=== PATIENT | female | born 2000 | race American Indian/Alaskan Native ===

== ENCOUNTER 2022-07-05 13:54 | Inpatient (IN) | payer MEDICAID ==
[2022-07-05] MEDS ORDERED: IPRATROPIUM/ALBUTEROL SULFATE 3 ML AMPUL.NEB IH ONE ×2 (14:21)
[2022-07-05] MEDS ORDERED: methylPREDNISolone Sod Succinate 40 MG/1 ML INJ IV ONE (14:22)
[2022-07-05] MEDS ORDERED: LEVALBUTEROL 0.63 MG/3 ML NEBU IH ONE (14:23)
--- NOTE | 2022-07-05 14:26 | Emergency Department Report ---
ED General Adult HPI - General Chief complaint: Adult Asthma Stated complaint: ASTHMA PUI?: No Time Seen by Provider: 07/05/22 14:19 Source: patient, EMS Mode of arrival: Stretcher Limitations: No Limitations - History of Present Illness Initial comments: 21 year old female brought in by EMS with concern of shortness of breath since yesterday. Patient states she has medical history of asthma and denies anything else. Denies smoking. Severity scale (0 -10): 0 - Related Data Previous Rx's Medication Instructions Recorded Last Taken Type Rivaroxaban [Xarelto] 15 mg PO Q12H 21 Days #42 tablet 07/05/22 Unknown Rx Allergies Allergy/AdvReac Type Severity Reaction Status Date / Time shellfish derived Allergy Anaphylaxis Verified 07/05/22 14:10 ED Review of Systems ROS: Stated complaint: ASTHMA Other details as noted in HPI Comment: All other systems reviewed and negative ED Past Medical Hx - Past Medical History Previous Medical History?: Yes - Medications Home Medications: Home Medications Medication Instructions Recorded Confirmed Last Taken Type Rivaroxaban [Xarelto] 15 mg PO Q12H 21 Days #42 tablet 07/05/22 Unknown Rx ED Physical Exam - General Limitations: No Limitations General appearance: alert, in no apparent distress - Head Head exam: Present: atraumatic, normocephalic, normal inspection - Eye Eye exam: Present: normal appearance Pupils: Present: normal accommodation - ENT ENT exam: Present: normal exam, normal orophraynx, mucous membranes moist - Neck Neck exam: Present: normal inspection, full ROM - Respiratory Respiratory exam: Present: wheezes. Absent: respiratory distress, rales, rho nchi, stridor, accessory muscle use - Cardiovascular Cardiovascular Exam: Present: tachycardia - GI/Abdominal GI/Abdominal exam: Present: soft - Extremities Exam Extremities exam: Present: normal inspection, full ROM, normal capillary refill - Back Exam Back exam: Present: normal inspection, full ROM - Neurological Exam Neurological exam: Present: alert, oriented X3, CN II-XII intact - Psychiatric Psychiatric exam: Present: normal affect, normal mood - Skin Skin exam: Present: normal color ED Course Vital Signs 07/05/22 07/05/22 07/05/22 13:54 14:44 15:07 Temperature 98.7 F 98.5 F Pulse Rate 134 H 142 H Pulse Rate [ Bilateral] Respiratory 24 20 Rate Respiratory Rate [Bilateral ] Blood Pressure 125/68 Blood Pressure 119/82 [Left] O2 Sat by Pulse 100 78 L 99 Oximetry 07/05/22 07/05/22 15:15 15:30 Temperature Pulse Rate 138 H Pulse Rate [ 146 H Bilateral] Respiratory 37 H Rate Respiratory 30 H Rate [Bilateral ] Blood Pressure 121/74 Blood Pressure [Left] O2 Sat by Pulse 100 Oximetry - Reevaluation(s) Reevaluation #1: 07/05/22 15:32 EKG AT 1452: SINUS TACHY AT 144GPM; NO ST ELEVATION OR DEPRESSION; NO WELLEN WAVES. DDIMER BACK AND HIGH; WILL ORDER CTPA 07/05/22 16:15 WASTE DUSTER BROUGHT TO MY ATTENTION PATIENT HAS ANAPHYLAXIS TO SHELLFISH; SPOKE TO DR. CONWAY WHO KINDLY ADVISED ME THAT WE CAN DO NM VQ SCAN IN ER. WILL ORDER. IN THE MEANTIME, I WILL ORDER SQ LOVENOX IN CAUSE PATIENT DOES HAVE PE. ED Medical Decision Making - Lab Data Result diagrams: 07/05/22 14:40 07/05/22 14:40 - Medical Decision Making EKG WITH NO RIGHT HEART STRAIN; NO S1Q3T3 AND BNP NORMAL; THEREFORE DOUBT MASSIVE/SUBMASSIVE PE. NM VQ SCAN WITHNTERMEDIATE PROBABILITY FOR PULMONARY EMBOLISM. LARGE LEFT LOWER LOBE AND MODERATE LEFT UPPER LOBE PERFUSION DEFECTS WITHOUT CORRESPONDING RADIOGRAPHIC ABNORMALITIES. VENTILATION IMAGING WAS NOT PERFORMED. PATIENT INFORMED I WILL START HER ON XARELTO 15MG BID FOR 21 DAYS AND IN THE MEANTIME, SHE MUST FOLLOW UP WITH PRIMARY CARE PROVIDER OF HER CHOICE TO BE SEEN WITHIN 3 DAYS TO SEE HOW LONG SHE NEEDS TO BE ON THE MEDICATION. PATIENT INFORMED THE BLEEDING RISK WHILE ON XARELTO. Critical care attestation.: If time is entered above; I have spent that time in minutes in the direct care of this critically ill patient, excluding procedure time. ED Disposition Clinical Impression: Sinus tachycardia by electrocardiogram, Elevated d-dimer, Wheezing Disposition: HOME / SELF CARE / HOMELESS Is pt being admited?: No Does the pt Need Aspirin: No Condition: Stable Instructions: Shortness of Breath, Adult Additional Instructions: MAKE A FOLLOW UP APPOINTMENT WITH YOUR PRIMARY CARE PROVIDER TO BE SEEN WITHIN 5 DAYS FOR FURTHER OUTPATIENT EVALUATION AND THE DURATION OF YOUR XARELTO. YOUR DDIMER WAS ELEVATED AND NUCLEAR MEDICINE VENTILATION PERFUSION SCAN REVEALS: IMPRESSION: INTERMEDIATE PROBABILITY FOR PULMONARY EMBOLISMS. LARGE LEFT LOWER LOBE AND MODERATE LEFT UPPER LOBE PERFUSION DEFECTS WITHOUT CORRESPONDING RADIOGRAPHIC ABNORMALITIES. VENTILATION IMAGING WAS NOT PERFORMED. TOMMY CALHOUN MD Prescriptions: Rivaroxaban [Xarelto] 15 mg PO Q12H 21 Days #42 tablet Forms: Work/School Release Form(ED) Time of Disposition: 18:10
--- NOTE | 2022-07-05 14:57 | XRay Report ---
CHEST 1 VIEW 07/05/2022 1:50 PM INDICATION / CLINICAL INFORMATION: sob. COMPARISON: None available. FINDINGS: SUPPORT DEVICES: None. HEART / MEDIASTINUM: No significant abnormality. LUNGS / PLEURA: No significant pulmonary or pleural abnormality. No pneumothorax. ADDITIONAL FINDINGS: Scoliotic curvature of the facet spine. IMPRESSION: 1. No acute findings. Signer Name: Adolfo Medellin DO Signed: 07/05/2022 2:53 PM Workstation Name: [email or web address]
[2022-07-05 15:36] LABS: BUN/Creatinine Ratio 11; Blood Urea Nitrogen 8 mg/dL (7-17); Calcium 9.8 mg/dL (8.4-10.2); Hemolysis Index 39
[2022-07-05] MEDS ORDERED: ENOXAPARIN 100 MG/1 ML INJ SUB-Q ONE (16:14)
[2022-07-05 16:33] LABS: Hematocrit 46.5 % (30.3-42.9); Hemoglobin 15.3 gm/dl (10.1-14.3); Mean Corpuscular HGB Conc 33 % (30-34); Mean Corpuscular Volume 87 fl (79-97); Platelet Count 233 K/mm3 (140-440); Red Blood Count 5.38 M/mm3 (3.65-5.03); Red Cell Distribution Width 15.3 % (13.2-15.2)
--- NOTE | 2022-07-05 17:51 | Nuclear Medicine Report ---
NUCLEAR MEDICINE PERFUSION LUNG SCAN INDICATION / CLINICAL INFORMATION: SOB / SINUS TACHY / DDIMER HIGH / SHELLFISH ALLERG. TECHNIQUE: 4.5 mCi of Tc-99m MAA were given by IV. COMPARISON: Chest radiograph dated today. FINDINGS: PERFUSION: There is a large left lower lobe perfusion defect without corresponding radiographic abnor mality. Moderate left upper lobe perfusion defect without corresponding radiographic abnormality. Denny rly normal perfusion within the left midlung. Normal perfusion throughout the right lung. ADDITIONAL FINDINGS: None. IMPRESSION: 1. Intermediate probability for pulmonary embolism. Large left lower lobe and moderate left upper lob e perfusion defects without corresponding radiographic abnormalities. Ventilation imaging was not per formed. Signer Name: Tawanda Del Toro MD Signed: 07/05/2022 5:46 PM Workstation Name: [id number]
--- NOTE | 2022-07-05 19:53 | History and Physical Report ---
History of Present Illness Date of examination: 07/05/22 Date of admission: 07/05/2022 Chief complaint: Shortness of breath and wheezing since yesterday. History of present illness: 21 year old female comes in for increasing shortness of breath since yesterday. Severe wheezing. Not responding to inhalers. No fever or chills. Not responding to outpatient treatment. In the emergency room oxygen saturations were in the mid 80s on room air. Responding to nasal cannula oxygen. - Past Medical History --Asthma - past surgical history --unavailable -social history smokes marijuana to 1 joint twice a day -family history --nothing significant Review of Systems ROS: Constitutional no weight loss or weight gain no fever or chills HEENT no sore throat no post nasal drip no diplopia Neck no neck stiffness no lymph gland enlargement Chest and lungs shortness of breath and wheezing for 2 days CVS no chest pain no diaphoresis no palpitations GI no nausea no vomiting no diarrhea Genitourinary system no dysuria no flank pain Musculoskeletal system no muscle pains no joint pains 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 Skin no rash no itching Psychiatric no depression no homicidal or suicidal tendencies Hematologic no lymphedema or bruising Endocrine no polydipsia no polyuria no cold intolerance no heat intolerance Medications and Allergies Allergies Allergy/AdvReac Type Severity Reaction Status Date / Time shellfish derived Allergy Anaphylaxis Verified 07/05/22 14:10 Home Medications Medication Instructions Recorded Confirmed Last Taken Type Rivaroxaban [Xarelto] 15 mg PO Q12H 21 Days #42 tablet 07/05/22 Unknown Rx Exam - Constitutional Vitals: Temp Pulse Resp BP Pulse Ox 98.5 F 145 H 30 H 102/58 95 07/05/22 15:07 07/05/22 18:30 07/05/22 18:30 07/05/22 18:30 07/05/22 18:40 General appearance: Present: no acute distress, well-nourished - EENT Eyes: Present: PERRL ENT: hearing intact, clear oral mucosa - Neck Neck: Present: supple, normal ROM - Respiratory Respiratory effort: normal Respiratory: bilateral: CTA, rhonchi, wheezing - Cardiovascular Heart rate: 98 Rhythm: regular Heart Sounds: Present: S1 & S2. Absent: rub, click - Extremities Extremities: pulses symmetrical, No edema Peripheral Pulses: within normal limits - Abdominal General gastrointestinal: Present: soft, non-tender, non-distended, normal bowel sounds Female genitourinary: Present: normal - Rectal Rectal Exam: deferred - Integumentary Integumentary: Present: clear, warm, dry - Musculoskeletal Musculoskeletal: gait normal, strength equal bilaterally - Psychiatric Psychiatric: appropriate mood/affect, intact judgment & insight - Neurologic Neurologic: CNII-XII intact, moves all extremities Results - Labs CBC & Chem 7: 07/05/22 14:40 07/05/22 14:40 Labs: Laboratory Last Values WBC 8.2 K/mm3 (4.5-11.0) 07/05/22 14:40 RBC 5.38 M/mm3 (3.65-5.03) H 07/05/22 14:40 Hgb 15.3 gm/dl (10.1-14.3) H 07/05/22 14:40 Hct 46.5 % (30.3-42.9) H 07/05/22 14:40 MCV 87 fl (79-97) 07/05/22 14:40 MCH 28 pg (28-32) 07/05/22 14:40 MCHC 33 % (30-34) 07/05/22 14:40 RDW 15.3 % (13.2-15.2) H 07/05/22 14:40 Plt Count 233 K/mm3 (140-440) 07/05/22 14:40 D-Dimer 488.74 ng/mlDDU (0-234) H 07/05/22 14:40 Sodium 136 mmol/L (137-145) L 07/05/22 14:40 Potassium 4.1 mmol/L (3.6-5.0) 07/05/22 14:40 Chloride 101.4 mmol/L (98-107) 07/05/22 14:40 Carbon Dioxide 19 mmol/L (22-30) L 07/05/22 14:40 Anion Gap 20 mmol/L 07/05/22 14:40 BUN 8 mg/dL (7-17) 07/05/22 14:40 Creatinine 0.7 mg/dL (0.6-1.2) 07/05/22 14:40 Estimated GFR > 60 ml/min 07/05/22 14:40 BUN/Creatinine Ratio 11 % 07/05/22 14:40 Glucose 100 mg/dL (65-100) 07/05/22 14:40 Calcium 9.8 mg/dL (8.4-10.2) 07/05/22 14:40 Magnesium 1.80 mg/dL (1.7-2.3) 07/05/22 14:40 NT-Pro-B Natriuret Pep 63.52 pg/mL (0-450) 07/05/22 16:11 Short CBC 07/05/22 Range/Units 14:40 WBC 8.2 (4.5-11.0) K/mm3 Hgb 15.3 H (10.1-14.3) gm/dl Hct 46.5 H (30.3-42.9) % Plt Count 233 (140-440) K/mm3 BMP 07/05/22 14:40 Sodium 136 L Potassium 4.1 Chloride 101.4 Carbon Dioxide 19 L BUN 8 Creatinine 0.7 Glucose 100 Calcium 9.8 - Imaging and Cardiology Chest x-ray: report reviewed Imaging and Cardiology: Chest x-ray No acute findings Pulmonary perfusion lung scan Intermediate probability for pulmonary embolism. Large left lower lobe and moderate left upper lobe perfusion defects without corresponding radiographic abnormalities ventilation imaging was not performed all of normal emergency room but thank you by Assessment and Plan Advance Directives: Yes (Full code) VTE prophylaxis?: Chemical Plan of care discussed with patient/family: Yes - Patient Problems (1) Acute respiratory failure with hypoxia Status: Acute Plan to address problem: Continue oxygen supplementation Sats are between 85 and 88 on room air Patient is wheezing (2) Asthma exacerbation Status: Acute Qualifiers: Asthma severity: severe Asthma persistence: persistent Qualified Code(s): J45.51 - Severe persistent asthma with (acute) exacerbation Plan to address problem: Patient on nebulizers [id number] and every 3 as needed, IV steroids and IV antibiotics (3) Pulmonary embolism Status: Acute Qualifiers: Pulmonary embolism type: unspecified Acute cor pulmonale presence: without acute cor pulmonale Plan to address problem: Eliquis 5 mg twice a day (4) Polycythemia due to fall in plasma volume Status: Acute Plan to address problem: IV fluids for now (5) DVT prophylaxis Status: Acute Plan to address problem: On anticoagulation and GI prophylaxis (6) Advance care planning Status: Acute Plan to address problem: Disease education conducted, care plan discussed, diagnosis discussed, prognosis discussed. Patient is full code. Patient acknowledged understanding and agreement with care plan. +30 minutes.
[2022-07-05] MEDS ORDERED: ONDANSETRON 4 MG/2 ML INJ IV PRN (20:08)
[2022-07-05] MEDS ORDERED: ACETAMINOPHEN 325 MG TAB PO PRN (20:08)
[2022-07-05] MEDS ORDERED: MORPHINE 2 MG/1 ML INJ IV PRN (20:09)
[2022-07-05] MEDS ORDERED: METOCLOPRAMIDE 10 MG/2 ML INJ IV PRN (20:09)
[2022-07-05] MEDS ORDERED: oxyCODONE /ACETAMINOPHEN 5-325MG TAB PO PRN (20:09)
[2022-07-05] MEDS ORDERED: IPRATROPIUM/ALBUTEROL SULFATE 3 ML AMPUL.NEB IH PRN (20:10)
[2022-07-05] MEDS ORDERED: SODIUM CHLORIDE 0.9% 1000 ML 1,000 ML IV SCH (20:15)
[2022-07-05] MEDS ORDERED: ALBUTEROL 2.5 MG/3 ML NEBU IH PRN (20:20)
[2022-07-05] MEDS ORDERED: LORazepam 2 MG/ML VIAL IV PRN (20:55)
[2022-07-05] MEDS: HEPARIN 5,000 UNIT/1 ML VIAL SUB-Q SCH (21:49)
[2022-07-05] MEDS: methylPREDNISolone Sod Succinate 125 MG/2 ML INJ IV SCH (21:49)
[2022-07-05] MEDS ORDERED: ALBUTEROL 2.5 MG/3 ML NEBU IH ONE (21:56)
[2022-07-05] MEDS ORDERED: IPRATROPIUM 0.02% NEBU 2.5 ML IH ONE (21:56)
[2022-07-05] MEDS: FAMOTIDINE 20 MG TAB PO SCH (22:13)
[2022-07-05 22:39] LABS: HCG Qualitative,Urine Negative (Negative)
[2022-07-06 05:37] LABS: Basophils % (Auto) 0.5 % (0.0-1.8); Hematocrit 41.7 % (30.3-42.9); Hemoglobin 13.3 gm/dl (10.1-14.3); Lymphocytes # (Auto) 0.4 K/mm3 (1.2-5.4); Lymphocytes % (Auto) 4.6 % (13.4-35.0); Mean Corpuscular HGB Conc 32 % (30-34); Mean Corpuscular Volume 86 fl (79-97); Monocytes # (Auto) 0.7 K/mm3 (0.0-0.8); Monocytes % (Auto) 8.8 % (0.0-7.3); Platelet Count 221 K/mm3 (140-440); Red Blood Count 4.82 M/mm3 (3.65-5.03); Red Cell Distribution Width 15.4 % (13.2-15.2)
[2022-07-06 05:57] LABS: Alanine Aminotransferase 8 units/L (7-56); Albumin 4.6 g/dL (3.9-5)
[2022-07-06 06:18] LABS: Blood Urea Nitrogen 9 mg/dL (7-17); Calcium 9.3 mg/dL (8.4-10.2); Hemolysis Index 15
[2022-07-06] MEDS: methylPREDNISolone Sod Succinate 125 MG/2 ML INJ IV SCH ×3 (06:25→22:09)
[2022-07-06] MEDS: guaiFENesin 100 MG/5 ML ORAL LIQD PO PRN ×3 (06:26→22:48)
[2022-07-06 06:34] LABS: BUN/Creatinine Ratio 15
[2022-07-06] MEDS: IPRATROPIUM/ALBUTEROL SULFATE 3 ML AMPUL.NEB IH SCH ×4 (08:24→21:54)
--- NOTE | 2022-07-06 09:15 | Electrocardiograph Report ---
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
--- NOTE | 2022-07-06 10:11 | Progress Note ---
Assessment and Plan Assessment and plan: History of present illness: 21 year old female comes in for increasing shortness of breath since yesterday. Severe wheezing. Not responding to inhalers. No fever or chills. Not responding to outpatient treatment. In the emergency room oxygen saturations were in the mid 80s on room air. Responding to nasal cannula oxygen. Hospital Course: 07/06: On salter nasal cannula 12 l/min. Continue inhaler therapy, steroids, abx. Consultation placed to pulmonology. Eliquis d/c, start heparin gtt for PE. Coronavirus pcr sent. Assessment and Plan: #Acute hypoxic respiratory failure - currently on Hi Georgi nasal cannula 12/50% - etiology:multifactorial PE/asthma - medical therapy outlined below -will follow pulmonary input #Asthma exacerbation - wheezes/shortness of breath on presentation - initiated on duonebs, budesonide, brovana inhalers - solumedrol IV - levaquin - pulmonary consulation #COVID PUI - coronavirus PCR sent #Pulmonary embolism - VQ demonstrates int probability of PE. large left lower lobe filling defect - D/c eliquis, start heparin gtt #Preventative health care - preventative health counseling regarding management of life stressors, medication compliance and overall effect of chronic medical conditions on overall health. Encourage patient to follow up closely with with OP providers +30 minutes. The high probability of a clinically significant, sudden or life threatening deterioration of the [respiratory, heme] system(s) required my full and direct attention, intervention and personal management. The aggregate critical care time was [60] minutes. This time is in addition to time spent performing reported procedures but includes the following: [x] Data Review and interpretation [x] Patient assessment and monitoring of vital signs [x] Documentation [x] Medication orders and management History Interval history: I saw and evaluated the patient at bedside. He stated that she was comfortable this had improved. Did not appear to be in any distress. Family member present at bedside. The questions of both the patient and her family member were answered to their satisfaction. Hospitalist Physical - Physical exam Narrative exam: Physical Exam: VITAL SIGNS: Reviewed. GENERAL: The patient appears normally developed, Vital signs as documented. on hiflow nasal cannula HEAD: No signs of head trauma. EYES: Pupils are equal. Extraocular motions intact. EARS: Hearing grossly intact. MOUTH: Oropharynx is normal. NECK: No adenopathy, no JVD. CHEST: poor airmovement. improvement of wheezes. CARDIAC: Regular rate and rhythm. S1 and S2, without murmurs, gallops, or rubs. VASCULAR: No Edema. Peripheral pulses normal and equal in all extremities. ABDOMEN: Soft, non tender and non distended. No rebound or guarding, and no masses palpated. Bowel Sounds normal. MUSCULOSKELETAL: Good range of motion of all major joints. Extremities without clubbing, cyanosis or edema. NEUROLOGIC EXAM: Alert and oriented x 4. no focal sensory or strength deficits. PSYCHIATRIC: Mood normal. SKIN: detail exam as documented in skin assessment - Constitutional Vitals: Temp Pulse Resp BP Pulse Ox 98.6 F 118 H 16 118/61 100 07/06/22 07:52 07/06/22 08:24 07/06/22 08:24 07/06/22 07:52 07/06/22 08:24 General appearance: Present: no acute distress, well-nourished Results - Labs CBC & Chem 7: 07/06/22 11:15 07/06/22 05:22 Labs: Laboratory Last Values WBC 8.4 K/mm3 (4.5-11.0) 07/06/22 05:22 RBC 4.82 M/mm3 (3.65-5.03) 07/06/22 05:22 Hgb 13.3 gm/dl (10.1-14.3) 07/06/22 05:22 Hct 41.7 % (30.3-42.9) 07/06/22 05:22 MCV 86 fl (79-97) 07/06/22 05:22 MCH 28 pg (28-32) 07/06/22 05:22 MCHC 32 % (30-34) 07/06/22 05:22 RDW 15.4 % (13.2-15.2) H 07/06/22 05:22 Plt Count 221 K/mm3 (140-440) 07/06/22 05:22 Lymph % (Auto) 4.6 % (13.4-35.0) L 07/06/22 05:22 [place] % (Auto) 8.8 % (0.0-7.3) H 07/06/22 05:22 Eos % (Auto) 0.0 % (0.0-4.3) 07/06/22 05:22 Baso % (Auto) 0.5 % (0.0-1.8) 07/06/22 05:22 Lymph # (Auto) 0.4 K/mm3 (1.2-5.4) L 07/06/22 05:22 [place] # (Auto) 0.7 K/mm3 (0.0-0.8) 07/06/22 05:22 Eos # (Auto) 0.0 K/mm3 (0.0-0.4) 07/06/22 05:22 Baso # (Auto) 0.0 K/mm3 (0.0-0.1) 07/06/22 05:22 Seg Neutrophils % 86.1 % (40.0-70.0) H 07/06/22 05:22 Seg Neutrophils # 7.2 K/mm3 (1.8-7.7) 07/06/22 05:22 D-Dimer 488.74 ng/mlDDU (0-234) H 07/05/22 14:40 Sodium 137 mmol/L (137-145) 07/06/22 05:22 Potassium 4.6 mmol/L (3.6-5.0) 07/06/22 05:22 Chloride 105.5 mmol/L (98-107) 07/06/22 05:22 Carbon Dioxide 19 mmol/L (22-30) L 07/06/22 05:22 Anion Gap 17 mmol/L 07/06/22 05:22 BUN 9 mg/dL (7-17) 07/06/22 05:22 Creatinine 0.6 mg/dL (0.6-1.2) 07/06/22 05:22 Estimated GFR > 60 ml/min 07/06/22 05:22 BUN/Creatinine Ratio 15 % 07/06/22 05:22 Glucose 106 mg/dL (65-100) H 07/06/22 05:22 Calcium 9.3 mg/dL (8.4-10.2) 07/06/22 05:22 Magnesium 1.80 mg/dL (1.7-2.3) 07/05/22 14:40 Total Bilirubin 0.60 mg/dL (0.1-1.2) 07/06/22 05:22 AST 23 units/L (5-40) 07/06/22 05:22 ALT 8 units/L (7-56) 07/06/22 05:22 Alkaline Phosphatase 53 units/L (35-129) 07/06/22 05:22 NT-Pro-B Natriuret Pep 63.52 pg/mL (0-450) 07/05/22 16:11 Total Protein 7.6 g/dL (6.3-8.2) 07/06/22 05:22 Albumin 4.6 g/dL (3.9-5) 07/06/22 05:22 Albumin/Globulin Ratio 1.5 % 07/06/22 05:22 Urine HCG, Qual Negative (Negative) 07/05/22 Unknown Active Medications - Current Medications Current Medications: Generic Name Dose Route Start Last Admin Trade Name Freq PRN Reason Stop Dose Admin Acetaminophen 650 mg 07/05/22 20:08 Acetaminophen 325 Mg Tab PO Q4H PRN Pain MILD(1-3)/Fever >100.5/PALOMARES Albuterol 2.5 mg 07/05/22 20:20 Albuterol 2.5 Mg/3 Ml Nebu IH Q3HRT PRN Wheezing Albuterol/Ipratropium 1 ampul 07/06/22 08:00 07/06/22 08:24 Ipratropium/Albuterol Sulfate 3 Ml Ampul.Neb IH 1 ampul QIDRT SHEYLA Administration Arformoterol Tartrate 15 mcg 07/06/22 20:00 Arformoterol 15 Mcg/2 Ml Nebu IH Q12HRT SHEYLA Budesonide 0.5 mg 07/06/22 10:00 Budesonide 0.5 Mg/2 Ml Nebu IH Q12HRT SHEYLA Famotidine 20 mg 07/05/22 22:00 07/05/22 22:13 Famotidine 20 Mg Tab PO Not Given BID SHEYLA Guaifenesin 200 mg 07/06/22 02:34 07/06/22 06:26 Guaifenesin 100 Mg/5 Ml Oral Liqd PO 200 mg Q4H PRN Administration Cough Heparin Sodium (Porcine) 5,000 unit 07/05/22 22:00 07/05/22 21:49 Heparin 5,000 Unit/1 Ml Vial SUB-Q 5,000 unit Q12HR SHEYLA Administration Levofloxacin/Dextrose 750 mg in 150 mls @ 100 mls/hr 07/05/22 21:00 07/05/22 21:31 Levaquin 750mg/150ml IV 100 mls/hr Q24H SHEYLA Administration Protocol Lorazepam 1 mg 07/05/22 20:55 07/05/22 21:25 Lorazepam 2 Mg/Ml Vial IV 1 mg Q4H PRN Administration Anxiety Methylprednisolone Sodium Succinate 60 mg 07/05/22 22:00 07/06/22 06:25 Methylprednisolone Sod Succinate 125 Mg/2 Ml Inj IV 60 mg Q8HR SHEYLA Administration Metoclopramide HCl 10 mg 07/05/22 20:09 Metoclopramide 10 Mg/2 Ml Inj IV Q6H PRN Nausea And Vomiting Morphine Sulfate 2 mg 07/05/22 20:09 Morphine 2 Mg/1 Ml Inj IV Q4H PRN Pain, Moderate (4-6) Ondansetron HCl 4 mg 07/05/22 20:08 Ondansetron 4 Mg/2 Ml Inj IV Q8H PRN Nausea And Vomiting Oxycodone/Acetaminophen 1 tab 07/05/22 20:09 Oxycodone /Acetaminophen 5-325mg Tab PO Q6H PRN Pain, Moderate (4-6) Sodium Chloride 10 ml 07/05/22 22:00 07/05/22 23:07 Sodium Chloride 0.9% 10 Ml Flush Syringe IV Not Given BID SHEYLA Sodium Chloride 10 ml 07/05/22 20:08 Sodium Chloride 0.9% 10 Ml Flush Syringe IV PRN PRN LINE FLUSH
[2022-07-06] MEDS: FAMOTIDINE 20 MG TAB PO SCH ×2 (10:13→22:09)
[2022-07-06] MEDS: HEPARIN 5,000 UNIT/1 ML VIAL SUB-Q SCH (10:15)
[2022-07-06] MEDS ORDERED: HEPARIN 10,000 UNITS/10 ML VIAL IV ONE (11:00)
[2022-07-06] MEDS ORDERED: HEPARIN/ 0.45% NACL DRIP 25,000 UNIT/500 ML BAG IV SCH (11:00)
[2022-07-06 11:28] LABS: Hematocrit 39.8 % (30.3-42.9); Hemoglobin 13.1 gm/dl (10.1-14.3)
[2022-07-06 11:43] LABS: INR 1.14 (0.87-1.13)
[2022-07-06 11:44] LABS: Partial Thromboplastin Time 31.6 Sec. (24.2-36.6)
[2022-07-06] MEDS: BUDESONIDE 0.5 MG/2 ML NEBU IH SCH ×2 (11:48→21:54)
[2022-07-06] MEDS ORDERED: HEPARIN 10,000 UNITS/10 ML VIAL IV PRN (16:00)
[2022-07-06] MEDS: ARFORMOTEROL 15 MCG/2 ML NEBU IH SCH (21:54)
[2022-07-07] MEDS: methylPREDNISolone Sod Succinate 125 MG/2 ML INJ IV SCH (05:15)
[2022-07-07] MEDS: BUDESONIDE 0.5 MG/2 ML NEBU IH SCH (07:59)
[2022-07-07] MEDS: ARFORMOTEROL 15 MCG/2 ML NEBU IH SCH (07:59)
[2022-07-07] MEDS: IPRATROPIUM/ALBUTEROL SULFATE 3 ML AMPUL.NEB IH SCH ×3 (07:59→16:17)
--- NOTE | 2022-07-07 08:25 | Consultation ---
History of Present Illness Consult date: 07/07/22 Medications and Allergies Allergies Allergy/AdvReac Type Severity Reaction Status Date / Time shellfish derived Allergy Anaphylaxis Verified 07/05/22 14:10 Home Medications Medication Instructions Recorded Confirmed Last Taken Type Rivaroxaban [Xarelto] 15 mg PO Q12H 21 Days #42 tablet 07/05/22 Unknown Rx Active Meds: Active Medications Acetaminophen (Acetaminophen 325 Mg Tab) 650 mg PO Q4H PRN PRN Reason: Pain MILD(1-3)/Fever >100.5/PALOMARES Albuterol (Albuterol 2.5 Mg/3 Ml Nebu) 2.5 mg IH Q3HRT PRN PRN Reason: Wheezing Albuterol/Ipratropium (Ipratropium/Albuterol Sulfate 3 Ml Ampul.Neb) 1 ampul IH QIDRT [facility] Last Admin: 07/07/22 07:59 Dose: 1 ampul Arformoterol Tartrate (Arformoterol 15 Mcg/2 Ml Nebu) 15 mcg IH Q12HRT [facility] Last Admin: 07/07/22 07:59 Dose: 15 mcg Budesonide (Budesonide 0.5 Mg/2 Ml Nebu) 0.5 mg IH Q12HRT [facility] Last Admin: 07/07/22 07:59 Dose: 0.5 mg Famotidine (Famotidine 20 Mg Tab) 20 mg PO BID [facility] Last Admin: 07/06/22 22:09 Dose: 20 mg Guaifenesin (Guaifenesin 100 Mg/5 Ml Oral Liqd) 200 mg PO Q4H PRN PRN Reason: Cough Last Admin: 07/06/22 22:48 Dose: 200 mg Heparin Sodium (Porcine) (Heparin 10,000 Units/10 Ml Vial) 1,800 unit 40 unit/kg (1800 unit) IV Q6H PRN PRN Reason: Anti-Xa Assay < 0.1 units/ml Levofloxacin/Dextrose (Levaquin 750mg/150ml) 750 mg in 150 mls @ 100 mls/hr IV Q24H [facility]; Protocol Last Admin: 07/06/22 22:08 Dose: 100 mls/hr Heparin Sodium/Sodium Chloride (Heparin/ 0.45% Nacl-25,000 Unit/500 Ml) 25,000 unit in 500 mls @ 14 mls/hr IV TITR [facility]; Protocol Last Titration: 07/06/22 23:54 Dose: 600 units/hr, 12 mls/hr Lorazepam (Lorazepam 2 Mg/Ml Vial) 1 mg IV Q4H PRN PRN Reason: Anxiety Last Admin: 07/05/22 21:25 Dose: 1 mg Methylprednisolone Sodium Succinate (Methylprednisolone Sod Succinate 125 Mg/2 Ml Inj) 60 mg IV Q8HR [facility] Last Admin: 07/07/22 05:15 Dose: 60 mg Metoclopramide HCl (Metoclopramide 10 Mg/2 Ml Inj) 10 mg IV Q6H PRN PRN Reason: Nausea And Vomiting Morphine Sulfate (Morphine 2 Mg/1 Ml Inj) 2 mg IV Q4H PRN PRN Reason: Pain, Moderate (4-6) Ondansetron HCl (Ondansetron 4 Mg/2 Ml Inj) 4 mg IV Q8H PRN PRN Reason: Nausea And Vomiting Oxycodone/Acetaminophen (Oxycodone /Acetaminophen 5-325mg Tab) 1 tab PO Q6H PRN PRN Reason: Pain, Moderate (4-6) Sodium Chloride (Sodium Chloride 0.9% 10 Ml Flush Syringe) 10 ml IV BID [facility] Last Admin: 07/06/22 22:09 Dose: 10 ml Sodium Chloride (Sodium Chloride 0.9% 10 Ml Flush Syringe) 10 ml IV PRN PRN PRN Reason: LINE FLUSH Physical Examination Vital signs: Vital Signs Temp Pulse Resp BP Pulse Ox 98.7 F 134 H 24 119/82 100 07/05/22 13:54 07/05/22 13:54 07/05/22 13:54 07/05/22 13:54 07/05/22 13:54 Results - Laboratory Findings CBC and BMP: 07/06/22 11:15 07/06/22 05:22 PT/INR, D-dimer PT 15.9 Sec. (12.2-14.9) H 07/06/22 11:15 INR 1.14 (0.87-1.13) H 07/06/22 11:15 D-Dimer 488.74 ng/mlDDU (0-234) H 07/05/22 14:40 Abnormal lab findings: Abnormal Labs 07/05/22 07/05/22 07/05/22 14:40 14:40 14:40 RBC 5.38 H Hgb 15.3 H Hct 46.5 H RDW 15.3 H Lymph % (Auto) [place] % (Auto) Lymph # (Auto) Seg Neutrophils % PT INR D-Dimer 488.74 H Heparin Anti-Xa Level Sodium 136 L Carbon Dioxide 19 L Glucose 07/06/22 07/06/22 07/06/22 05:22 05:22 11:15 RBC Hgb Hct RDW 15.4 H Lymph % (Auto) 4.6 L [place] % (Auto) 8.8 H Lymph # (Auto) 0.4 L Seg Neutrophils % 86.1 H PT 15.9 H INR 1.14 H D-Dimer Heparin Anti-Xa Level Sodium Carbon Dioxide 19 L Glucose 106 H 07/06/22 19:26 RBC Hgb Hct RDW Lymph % (Auto) [place] % (Auto) Lymph # (Auto) Seg Neutrophils % PT INR D-Dimer Heparin Anti-Xa Level 0.97 H Sodium Carbon Dioxide Glucose
--- NOTE | 2022-07-07 08:28 | Event Note ---
Date: 07/07/22 Full consult to follow. Patient much improved compared to admission now down to 1 liter NC. Reviewed V/q scan. COVID negative. Continue heparin for now, ordered echo to look for evidence of right heart strain and consider LE dopplers as well. 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 Agree with current asthma management
[2022-07-07] MEDS: FAMOTIDINE 20 MG TAB PO SCH (10:10)
--- NOTE | 2022-07-07 11:33 | Progress Note ---
Assessment and Plan Assessment and plan: History of present illness: 21 year old female comes in for increasing shortness of breath since yesterday. Severe wheezing. Not responding to inhalers. No fever or chills. Not responding to outpatient treatment. In the emergency room oxygen saturations were in the mid 80s on room air. Responding to nasal cannula oxygen. Hospital Course: 07/06: On salter nasal cannula 12 l/min. Continue inhaler therapy, steroids, abx. Consultation placed to pulmonology. Eliquis d/c, start heparin gtt for PE. Coronavirus pcr sent. 07/07: On room air. Breathing comfortably. Awaiting completion of ECHO to evaluate for Right heart strain. Plan for d/c home if normal. Assessment and Plan: #Acute hypoxic respiratory failure - currently on Hi Georgi nasal cannula 12/50% - etiology:multifactorial PE/asthma - coronavirus PCR negative - medical therapy outlined below -will follow pulmonary input #Asthma exacerbation - wheezes/shortness of breath on presentation - initiated on duonebs, budesonide, brovana inhalers - solumedrol IV - levaquin - pulmonary consulation #Pulmonary embolism - appears provoked, had taken a depot provera shot. current active smoking - VQ demonstrates int probability of PE. large left lower lobe filling defect - echo to evaluate for RV strain. - heparin gtt - d/c home on xarelto if echo negative #Preventative health care - preventative health counseling regarding management of life stressors, medica tion compliance and overall effect of chronic medical conditions on overall health. Encourage patient to follow up closely with with OP providers +30 minutes. # Nicotine Abuse. Admits to smoking Black and milds. - behavioral health counseling administered which included education on benefits of smoking cessation as well as options for quitting. +15 min. #Advance care planning Disease education conducted, care plan discussed, diagnoses discussed, prognosis discussed, patient is full code, patient acknowledges understanding and agree with care plan, +30 minutes. History Interval history: Breathing comfortably today. No acute complaints. on room air. mother and family member at bedside, all questions answered to satisfaction. Hospitalist Physical - Physical exam Narrative exam: Physical Exam: VITAL SIGNS: Reviewed. GENERAL: The patient appears normally developed, Vital signs as documented. on hiflow nasal cannula HEAD: No signs of head trauma. EYES: Pupils are equal. Extraocular motions intact. EARS: Hearing grossly intact. MOUTH: Oropharynx is normal. NECK: No adenopathy, no JVD. CHEST: poor airmovement. improvement of wheezes. CARDIAC: Regular rate and rhythm. S1 and S2, without murmurs, gallops, or rubs. VASCULAR: No Edema. Peripheral pulses normal and equal in all extremities. ABDOMEN: Soft, non tender and non distended. No rebound or guarding, and no masses palpated. Bowel Sounds normal. MUSCULOSKELETAL: Good range of motion of all major joints. Extremities without clubbing, cyanosis or edema. NEUROLOGIC EXAM: Alert and oriented x 4. no focal sensory or strength deficits. PSYCHIATRIC: Mood normal. SKIN: detail exam as documented in skin assessment - Constitutional Vitals: Temp Pulse Resp BP Pulse Ox 98.5 F 92 H 20 107/45 98 07/07/22 05:20 07/07/22 07:59 07/07/22 07:59 07/07/22 05:20 07/07/22 07:59 General appearance: Present: no acute distress, well-nourished Results - Labs CBC & Chem 7: 07/06/22 11:15 07/06/22 05:22 Labs: Laboratory Last Values WBC 8.4 K/mm3 (4.5-11.0) 07/06/22 05:22 RBC 4.82 M/mm3 (3.65-5.03) 07/06/22 05:22 Hgb 13.1 gm/dl (10.1-14.3) 07/06/22 11:15 Hct 39.8 % (30.3-42.9) 07/06/22 11:15 MCV 86 fl (79-97) 07/06/22 05:22 MCH 28 pg (28-32) 07/06/22 05:22 MCHC 32 % (30-34) 07/06/22 05:22 RDW 15.4 % (13.2-15.2) H 07/06/22 05:22 Plt Count 190 K/mm3 (140-440) 07/06/22 11:15 Lymph % (Auto) 4.6 % (13.4-35.0) L 07/06/22 05:22 [place] % (Auto) 8.8 % (0.0-7.3) H 07/06/22 05:22 Eos % (Auto) 0.0 % (0.0-4.3) 07/06/22 05:22 Baso % (Auto) 0.5 % (0.0-1.8) 07/06/22 05:22 Lymph # (Auto) 0.4 K/mm3 (1.2-5.4) L 07/06/22 05:22 [place] # (Auto) 0.7 K/mm3 (0.0-0.8) 07/06/22 05:22 Eos # (Auto) 0.0 K/mm3 (0.0-0.4) 07/06/22 05:22 Baso # (Auto) 0.0 K/mm3 (0.0-0.1) 07/06/22 05:22 Seg Neutrophils % 86.1 % (40.0-70.0) H 07/06/22 05:22 Seg Neutrophils # 7.2 K/mm3 (1.8-7.7) 07/06/22 05:22 PT 15.9 Sec. (12.2-14.9) H 07/06/22 11:15 INR 1.14 (0.87-1.13) H 07/06/22 11:15 APTT 31.6 Sec. (24.2-36.6) 07/06/22 11:15 D-Dimer 488.74 ng/mlDDU (0-234) H 07/05/22 14:40 Heparin Anti-Xa Level 0.46 U.I./ml (0.3-0.7) 07/07/22 07:15 Sodium 137 mmol/L (137-145) 07/06/22 05:22 Potassium 4.6 mmol/L (3.6-5.0) 07/06/22 05:22 Chloride 105.5 mmol/L (98-107) 07/06/22 05:22 Carbon Dioxide 19 mmol/L (22-30) L 07/06/22 05:22 Anion Gap 17 mmol/L 07/06/22 05:22 BUN 9 mg/dL (7-17) 07/06/22 05:22 Creatinine 0.6 mg/dL (0.6-1.2) 07/06/22 05:22 Estimated GFR > 60 ml/min 07/06/22 05:22 BUN/Creatinine Ratio 15 % 07/06/22 05:22 Glucose 106 mg/dL (65-100) H 07/06/22 05:22 Calcium 9.3 mg/dL (8.4-10.2) 07/06/22 05:22 Magnesium 1.80 mg/dL (1.7-2.3) 07/05/22 14:40 Total Bilirubin 0.60 mg/dL (0.1-1.2) 07/06/22 05:22 AST 23 units/L (5-40) 07/06/22 05:22 ALT 8 units/L (7-56) 07/06/22 05:22 Alkaline Phosphatase 53 units/L (35-129) 07/06/22 05:22 NT-Pro-B Natriuret Pep 63.52 pg/mL (0-450) 07/05/22 16:11 Total Protein 7.6 g/dL (6.3-8.2) 07/06/22 05:22 Albumin 4.6 g/dL (3.9-5) 07/06/22 05:22 Albumin/Globulin Ratio 1.5 % 07/06/22 05:22 Urine HCG, Qual Negative (Negative) 07/05/22 Unknown Coronavirus (PCR) Negative (Negative) 07/06/22 11:00 [place]/IV: Voiding Method Toilet Active Medications - Current Medications Current Medications: Generic Name Dose Route Start Last Admin Trade Name Freq PRN Reason Stop Dose Admin Acetaminophen 650 mg 07/05/22 20:08 Acetaminophen 325 Mg Tab PO Q4H PRN Pain MILD(1-3)/Fever >100.5/PALOMARES Albuterol 2.5 mg 07/05/22 20:20 Albuterol 2.5 Mg/3 Ml Nebu IH Q3HRT PRN Wheezing Albuterol/Ipratropium 1 ampul 07/06/22 08:00 07/07/22 07:59 Ipratropium/Albuterol Sulfate 3 Ml Ampul.Neb IH 1 ampul QIDRT SHEYLA Administration Arformoterol Tartrate 15 mcg 07/06/22 20:00 07/07/22 07:59 Arformoterol 15 Mcg/2 Ml Nebu IH 15 mcg Q12HRT SHEYLA Administration Budesonide 0.5 mg 07/06/22 10:00 07/07/22 07:59 Budesonide 0.5 Mg/2 Ml Nebu IH 0.5 mg Q12HRT SHEYLA Administration Famotidine 20 mg 07/05/22 22:00 07/07/22 10:10 Famotidine 20 Mg Tab PO 20 mg BID SHEYLA Administration Guaifenesin 200 mg 07/06/22 02:34 07/06/22 22:48 Guaifenesin 100 Mg/5 Ml Oral Liqd PO 200 mg Q4H PRN Administration Cough Heparin Sodium (Porcine) 1,800 unit 07/06/22 16:00 Heparin 10,000 Units/10 Ml Vial 40 unit/kg (1800 unit) IV Q6H PRN Anti-Xa Assay < 0.1 units/ml Levofloxacin/Dextrose 750 mg in 150 mls @ 100 mls/hr 07/05/22 21:00 07/06/22 22:08 Levaquin 750mg/150ml IV 100 mls/hr Q24H SHEYLA Administration Protocol Heparin Sodium/Sodium Chloride 25,000 unit in 500 mls @ 14 mls/hr 07/06/22 11:00 07/06/22 23:54 Heparin/ 0.45% Nacl-25,000 Unit/500 Ml IV 600 units/hr TITR SHEYLA 12 mls/hr Titration Protocol 700 UNITS/HR Lorazepam 1 mg 07/05/22 20:55 07/05/22 21:25 Lorazepam 2 Mg/Ml Vial IV 1 mg Q4H PRN Administration Anxiety Methylprednisolone Sodium Succinate 60 mg 07/05/22 22:00 07/07/22 05:15 Methylprednisolone Sod Succinate 125 Mg/2 Ml Inj IV 60 mg Q8HR SHEYLA Administration Metoclopramide HCl 10 mg 07/05/22 20:09 Metoclopramide 10 Mg/2 Ml Inj IV Q6H PRN Nausea And Vomiting Morphine Sulfate 2 mg 07/05/22 20:09 Morphine 2 Mg/1 Ml Inj IV Q4H PRN Pain, Moderate (4-6) Ondansetron HCl 4 mg 07/05/22 20:08 Ondansetron 4 Mg/2 Ml Inj IV Q8H PRN Nausea And Vomiting Oxycodone/Acetaminophen 1 tab 07/05/22 20:09 Oxycodone /Acetaminophen 5-325mg Tab PO Q6H PRN Pain, Moderate (4-6) Sodium Chloride 10 ml 07/05/22 22:00 07/06/22 22:09 Sodium Chloride 0.9% 10 Ml Flush Syringe IV 10 ml BID SHEYLA Administration Sodium Chloride 10 ml 07/05/22 20:08 Sodium Chloride 0.9% 10 Ml Flush Syringe IV PRN PRN LINE FLUSH
[2022-07-07 20:43] VITALS: BP 107/57
--- NOTE | 2022-07-08 11:56 | Discharge Summary ---
Providers - Providers Date of Admission: 07/05/22 20:08 Date of discharge: 07/08/22 Attending physician: JOSLYN COOK MD 07/06/22 09:54 Consult to Physician [CONS] Routine Comment: Consulting Provider: TYLER MADERA Physician Instructions: Reason For Exam: asthma exacerbation, PE 07/07/22 11:33 Consult to Case Management [CONS] Routine Services Needed at Discharge: DME Equipment Notified:: casework manager Comment:: nebulizer machine Primary care physician: SARATH MALCOLM Hospitalization Reason for admission: shortness of breath Condition: Stable Hospital course: History of present illness: 21 year old female comes in for increasing shortness of breath since yesterday. Severe wheezing. Not responding to inhalers. No fever or chills. Not responding to outpatient treatment. In the emergency room oxygen saturations were in the mid 80s on room air. Responding to nasal cannula oxygen. Hospital Course: 07/06: On salter nasal cannula 12 l/min. Continue inhaler therapy, steroids, abx. Consultation placed to pulmonology. Eliquis d/c, start heparin gtt for PE. Coronavirus pcr sent. 07/07: On room air. Breathing comfortably. Awaiting completion of ECHO to evaluate for Right heart strain. Plan for d/c home if normal. Paged about patient wanting to leave AMA. Risks of doing so explained to patient which included rehospitalization or even sudden . Patient understood these risks and signed out AMA. Assessment and Plan: #Acute hypoxic respiratory failure - currently on Hi Georgi nasal cannula 12/50% - etiology:multifactorial PE/asthma - coronavirus PCR negative - medical therapy outlined below -will follow pulmonary input #Asthma exacerbation - wheezes/shortness of breath on presentation - initiated on duonebs, budesonide, brovana inhalers - solumedrol IV - levaquin - pulmonary consulation #Pulmonary embolism - appears provoked, had taken a depot provera shot. current active smoking - VQ demonstrates int probability of PE. large left lower lobe filling defect - echo to evaluate for RV strain. - heparin gtt - d/c home on xarelto if echo negative #Preventative health care - preventative health counseling regarding management of life stressors, medication compliance and overall effect of chronic medical conditions on overall health. Encourage patient to follow up closely with with OP providers +30 minutes. # Nicotine Abuse. Admits to smoking Black and milds. - behavioral health counseling administered which included education on benefits of smoking cessation as well as options for quitting. +15 min. #Advance care planning Disease education conducted, care plan discussed, diagnoses discussed, prognosis discussed, patient is full code, patient acknowledges understanding and agree with care plan, +30 minutes. Disposition: 07 LEFT AGAINST MEDICAL ADVICE Final Discharge Diagnosis (Prints w/discharge instructions): Acute hypoxic respiratory failure, asthma exacerbation, pulmonary embolism. Time spent for discharge: 35 Core Measure Documentation - Palliative Care Palliative Care/ Comfort Measures: Not Applicable - Core Measures Any of the following diagnoses?: DVT/PE - VTE Discharge Requirements Deep Vein Thrombosis/Pulmonary Embolism Present on Admission: Yes Has pt received <5 days of overlap therapy or INR<2.0: No (DOAC) Anticoagulant overlap therapy prescribed at discharge: No Contraindication No Overlap Therapy order at DC: Patient Refusal (patient left AMA, no rx provided) Exam - Physical Exam Narrative exam: Physical Exam: VITAL SIGNS: Reviewed. GENERAL: The patient appears normally developed, Vital signs as documented. on hiflow nasal cannula HEAD: No signs of head trauma. EYES: Pupils are equal. Extraocular motions intact. EARS: Hearing grossly intact. MOUTH: Oropharynx is normal. NECK: No adenopathy, no JVD. CHEST: poor airmovement. improvement of wheezes. CARDIAC: Regular rate and rhythm. S1 and S2, without murmurs, gallops, or rubs. VASCULAR: No Edema. Peripheral pulses normal and equal in all extremities. ABDOMEN: Soft, non tender and non distended. No rebound or guarding, and no masses palpated. Bowel Sounds normal. MUSCULOSKELETAL: Good range of motion of all major joints. Extremities without clubbing, cyanosis or edema. NEUROLOGIC EXAM: Alert and oriented x 4. no focal sensory or strength deficits. PSYCHIATRIC: Mood normal. SKIN: detail exam as documented in skin assessment - Constitutional Vitals: Temp Pulse Resp BP Pulse Ox 98.1 F 99 H 20 107/57 99 07/07/22 14:00 07/07/22 16:17 07/07/22 16:17 07/07/22 14:00 07/07/22 14:00 Plan Follow up with: SARATH MALCOLM MD [Primary Care Provider] - 7 Days Forms: AMA Form, Work/School Release Form(ED) Prescriptions: Budesonide/Formoterol Fumarate [Budesonide-Formoterol 160-4.5] 10.2 gm IH BID 30 Days #1 pump Prednisone [predniSONE 5 mg (6-Day Pack, 21 Tabs)] 5 mg PO .TAPER 6 Days #1 tab Albuterol Mdi (or & Nicu Only) [ProAir HFA Inhaler] 1 puff IH Q4HR PRN 30 Days #1 pump PRN Reason: Shortness Of Breath ALBUTEROL NEB's [Proventil 0.083% NEBS] 2.5 mg IH TID PRN 30 Days #1 neb PRN Reason: Wheezing Rivaroxaban [Xarelto] 15 mg PO Q12H 21 Days #42 tablet Rivaroxaban [Xarelto] 20 mg PO QDAY 30 Days #30 tab Other Discharge Orders: Nebulizer (Amb) Location: None Selected
== END 2022-07-07 18:50 | disposition left against medical advice (07) | DRG 175 ==
LOC: ED 13:54 → 4A 20:08
PROVIDERS: ADMIT Internal Medicine; ATTEND Internal Medicine
PROC: 5A0935A Assistance with Respiratory Ventilation, Less than 24 Consecutive Hours, High Flow/Velocity Cannula (ICD-10-PCS; principal; 2022-07-05)
PROC: 5A0935A Assistance with Respiratory Ventilation, Less than 24 Consecutive Hours, High Flow/Velocity Cannula (ICD-10-PCS; 2022-07-06)
DX: I26.99 Other pulmonary embolism without acute cor pulmonale (principal); J96.01 Acute respiratory failure with hypoxia; Z20.822 Contact with and (suspected) exposure to COVID-19; J45.51 Severe persistent asthma with (acute) exacerbation; D75.1 Secondary polycythemia; F17.200 Nicotine dependence, unspecified, uncomplicated; Z53.29 Procedure and treatment not carried out because of patient's decision for other reasons; Z91.013 Allergy to seafood
CPT/HCPCS: 36415; 71045; 78580; 80048; 80053; 81025; 83735; 83880; 85014; 85018; 85025; 85027; 85049; 85379; 85520; 85610; 85730; 93005; 93306; 94640; 94644; 94760; 96374; 99285; G0378; J3490; A9540; C8929; J1644; J1650; J1956; J2060; J2920; J2930; J7030; U0003